=== PATIENT | male | born 1950 | race Caucasian/White ===

== ENCOUNTER 2017-01-11 11:37 | Emergency (ER) | payer OTHER ==
[~2017-01-11] VITALS: Ht 175.3 cm; Wt 93.4 kg
[~2017-01-11 11:37] MED LIST: ASPIR 8181 M1 PO; FELDENE20 MG PO; IBUPROFEN600 MG PO; PERCOCET 7.51 TABLET PO
[2017-01-11] MEDS ORDERED: MOTRIN600 MG PO (13:39)
[2017-01-11] MEDS ORDERED: LORTAB 5-325 M1 EACH PO (13:39)
[2017-01-11 14:00] VITALS: BP 160/103
== END 2017-01-11 14:04 | disposition home or self-care (01) ==
LOC: EME 11:37 → RME 11:37
DX: S83.91XA Sprain of unspecified site of right knee, initial encounter (principal); S83.92XA Sprain of unspecified site of left knee, initial encounter; S93.491A Sprain of other ligament of right ankle, initial encounter; M54.9 Dorsalgia, unspecified; M25.512 Pain in left shoulder; W18.09XA Striking against other object with subsequent fall, initial encounter; Z95.1 Presence of aortocoronary bypass graft; Z79.82 Long term (current) use of aspirin
CPT/HCPCS: 73564; 73610; 99281; 99284

== ENCOUNTER → 2017-05-01 | Outpatient (CLI) | payer OTHER ==
[~2017-05-01] VITALS: Ht 175.3 cm; Wt 93.0 kg
[~2017-05-01] MED LIST changes: +ADULT ASPIRIN R81 MG PO; +LORTAB 5-325 M1 EACH PO; +MOTRIN600 MG PO; +RANITIDINE HCL300 MG PO
== END | disposition home or self-care (01) ==
LOC: AMB 10:24
DX: Z12.11 Encounter for screening for malignant neoplasm of colon (principal); K29.70 Gastritis, unspecified, without bleeding; K57.30 Diverticulosis of large intestine without perforation or abscess without bleeding; K64.8 Other hemorrhoids; D12.3 Benign neoplasm of transverse colon; K62.1 Rectal polyp; D17.5 Benign lipomatous neoplasm of intra-abdominal organs; I25.10 Atherosclerotic heart disease of native coronary artery without angina pectoris; Z95.1 Presence of aortocoronary bypass graft; Z79.82 Long term (current) use of aspirin; K90.41 Non-celiac gluten sensitivity
CPT/HCPCS: 88305; 88342 TC; J2250; J3010

== ENCOUNTER 2017-06-08 05:36 | Day surgery (SDC) | payer OTHER ==
[~2017-06-08] VITALS: Ht 175.3 cm; Wt 93.0 kg
[~2017-06-08 05:36] MED LIST changes: +CRESTOR10 MG PO; +IBUPROFEN200 M1 PO; +NITROSTAT0.4 MG SL; +SLOW-MAG,MAG DE64 MG PO
[2017-06-08 06:50] VITALS: BP 138/70
[2017-06-08] MEDS ORDERED: HYDROCODON-ACE1 EAC7 PO (08:41)
[2017-06-08 09:50] VITALS: BP 157/75
[2017-06-08] MEDS ORDERED: DILAUDID2 MG PO ×2 (10:46→10:49)
[2017-06-08 10:50] VITALS: BP 138/73
[2017-06-08 12:50] VITALS: BP 177/76
[2017-06-08 13:05] VITALS: BP 141/79
== END 2017-06-08 14:14 | disposition home or self-care (01) ==
LOC: SDC 05:36
DX: K80.10 Calculus of gallbladder with chronic cholecystitis without obstruction (principal); K42.9 Umbilical hernia without obstruction or gangrene; I10 Essential (primary) hypertension; E78.5 Hyperlipidemia, unspecified; G47.30 Sleep apnea, unspecified; I25.10 Atherosclerotic heart disease of native coronary artery without angina pectoris; E74.39 Other disorders of intestinal carbohydrate absorption; Z86.010 Personal history of colon polyps; Z95.1 Presence of aortocoronary bypass graft; E80.4 Gilbert syndrome; M17.10 Unilateral primary osteoarthritis, unspecified knee; E66.9 Obesity, unspecified; Z68.30 Body mass index [BMI] 30.0-30.9, adult
CPT/HCPCS: 88304; J0131; J0330; J1100; J1885; J2250; J2405; J2710; J3010; S0074